=== PATIENT | female | born 1985 | race Caucasian/White ===

== ENCOUNTER 2017-11-03 20:12 | Day surgery (SDC) | payer OTHER | END 2017-11-03 20:39 | disposition home or self-care (01) | LOC: ERS 20:12 → EEVIPCON 20:12 → ER/OP 20:12 → ERS 20:39 → ER/OP 20:39 | PROVIDERS: ATTEND Emergency Medicine | DX: Z57.8 Occupational exposure to other risk factors (principal) ==

== ENCOUNTER 2018-02-20 09:53 | Outpatient (CLI) | payer OTHER | END 2018-02-20 09:54 | disposition home or self-care (01) | LOC: BICMAMMO 09:53 | PROVIDERS: ATTEND Advanced Practice Midwife | DX: N63.10 Unspecified lump in the right breast, unspecified quadrant (principal) | CPT/HCPCS: 77066; G0279 ==

== ENCOUNTER 2018-03-10 13:25 | Emergency (ER) | payer OTHER ==
[2018-03-10] MEDS ORDERED: Bupivacaine 0.5% 10 ML VIAL ONE (13:43)
[2018-03-10] MEDS ORDERED: Bacitracin Zinc 1 Packet ONE (14:09)
== END 2018-03-10 14:10 | disposition home or self-care (01) ==
LOC: SCSER 13:25
DX: S61.214A Laceration without foreign body of right ring finger without damage to nail, initial encounter (principal); W26.0XXA Contact with knife, initial encounter; Y93.G1 Activity, food preparation and clean up
CPT/HCPCS: 64450; J3490

== ENCOUNTER 2023-05-15 13:30 | Outpatient (CLI) | payer BC ==
[~2023-05-15 13:30] MED LIST: Iopamidol 300 61% 30 ML VIAL ONE
[2023-05-15 14:06] LABS: BHCG - Serum Negative (NEGATIVE); Pregs Control Background? CLEAR/WHITE (CLR/WHITE); Pregs Control Bar Appear? YES (CONTROL BAR)
== END 2023-05-15 13:31 | disposition home or self-care (01) ==
LOC: RAD 13:30
PROVIDERS: ATTEND Advanced Practice Midwife
DX: Z32.00 Encounter for pregnancy test, result unknown (principal); Z78.9 Other specified health status
CPT/HCPCS: 58340; 74740; 84703; Q9967